=== PATIENT | female | born 1955 | race Caucasian/White ===

== ENCOUNTER 2020-09-08 14:16 | Emergency (ER) | payer BC ==
[~2020-09-08] VITALS: Ht 165.1 cm; Wt 62.7 kg
[2020-09-08] MEDS ORDERED: VOLTAREN1%GEL TOP (16:57)
[2020-09-08 17:04] VITALS: BP 137/80
== END 2020-09-08 17:06 | disposition home or self-care (01) | DRG 556 ==
LOC: ED 14:16
DX: M25.561 Pain in right knee (principal); E78.00 Pure hypercholesterolemia, unspecified